=== PATIENT | male | born 1980 | race African-American/Black ===

== ENCOUNTER 2020-10-09 11:38 | Emergency (ER) | payer OTHER ==
[~2020-10-09] VITALS: Ht 160 cm; Wt 52.3 kg
[2020-10-09] MEDS ORDERED: METF-838 PO (11:55)
[2020-10-09] MEDS ORDERED: AMLO1TAB25 PO (11:56)
[2020-10-09] MEDS ORDERED: ACETAMINOPHEN 500 MG TAB PO ONE (14:20)
[2020-10-09] MEDS ORDERED: LIDOCAINE 5% (LIDODERM) PATCH TD ONE (14:20)
--- NOTE | 2020-10-09 15:02 | REP ---
INDICATION: fall. COMPARISON: None. TECHNIQUE: 4.5 mm contiguous transaxial sections were obtained from the skull base to the cerebral convexities with thin cuts through the posterior fossa without the administration of intravenous contrast. FINDINGS: The ventricles and sulci are consistent with the patient's age. There are no extra-axial fluid collections. There is no mass effect. The deep cerebral white matter is consistent with the patient's age. The orbital and petrous structures, cerebellopontine angles, and posterior fossa are unremarkable. The sella turcica, cavernous, and paracavernous structures are essentially unremarkable. The visualized portions of the paranasal sinuses and mastoid air cells are clear. Images of the skull base show no gross abnormality. IMPRESSION: Essentially unremarkable CT examination of the brain. <Electronically signed by Eugene Santillan > 10/09/20 [id number]
--- NOTE | 2020-10-09 15:04 | REP ---
INDICATION: fall. COMPARISON: None TECHNIQUE: Standard helical technique using 2 mm increments and reconstructed in both sagittal and coronal planes FINDINGS: Vertebral body height and alignment is within normal limits. The disc spaces are symmetric and well maintained throughout. The facet joints are well aligned bilaterally. There is no acute fracture subluxation. There is no abnormal paraspinal soft tissue swelling. IMPRESSION: No acute abnormality. <Electronically signed by Eugene Santillan > 10/09/20 1500
--- NOTE | 2020-10-09 15:06 | REP ---
INDICATION: fall. COMPARISON: None TECHNIQUE: Standard helical technique using 4 mm increments and reconstructed in both sagittal coronal planes FINDINGS: CT cannot rule out an acute disc extrusion. Vertebral body height and alignment is within normal limits. The disc spaces are symmetric and well maintained throughout. There is no acute fracture or abnormal subluxation. The facet joints are within normal limits bilaterally. There is no evidence of abnormal paraspinal soft tissue density. IMPRESSION: CT findings are within normal limits. <Electronically signed by Eugene Santillan > 10/09/20 [id number]
[2020-10-09 15:42] VITALS: BP 134/79
[2020-10-09] MEDS ORDERED: **NOTE PATIENT COMMENT** MISC XX SCH (21:00)
== END 2020-10-09 15:51 | disposition home or self-care (01) ==
LOC: M ED 11:38
DX: S00.93XA Contusion of unspecified part of head, initial encounter (principal); S30.0XXA Contusion of lower back and pelvis, initial encounter; X50.9XXA Other and unspecified overexertion or strenuous movements or postures, initial encounter; Y92.89 Other specified places as the place of occurrence of the external cause; Y93.66 Activity, soccer; Y99.8 Other external cause status; E11.9 Type 2 diabetes mellitus without complications; I10 Essential (primary) hypertension; M54.9 Dorsalgia, unspecified; G89.29 Other chronic pain; Z79.84 Long term (current) use of oral hypoglycemic drugs; Z79.899 Other long term (current) drug therapy

== ENCOUNTER 2021-10-23 10:35 | Inpatient (IN) | payer OTHER ==
[~2021-10-23] VITALS: Ht 160 cm; Wt 68.2 kg
[~2021-10-23 10:35] MED LIST: AMLO1TAB25 PO; METF-838 PO
[2021-10-23 11:18] LABS: HEMOGLOBIN 15.1 g/dl (13.5-17.5); MEAN CORPUSCULAR HEMOGLOBIN 27.1 pg (27.0-33.0); MEAN CORPUSCULAR HGB CONC 32.1 g/dl (32.0-36.5); MEAN CORPUSCULAR VOLUME 84.4 fl (80.0-96.0); PLATELET COUNT, AUTOMATED 290 10^3/uL (150-450); RED BLOOD COUNT 5.57 10^6/uL (4.30-6.10); WHITE BLOOD COUNT 6.4 10^3/uL (4.0-10.0)
[2021-10-23 12:03] LABS: ALBUMIN 4.4 GM/DL (3.2-5.2); ALT/SGPT 66 U/L (12-78); BILIRUBIN,DIRECT 0.1 MG/DL (0.0-0.2); BILIRUBIN,TOTAL 0.9 MG/DL (0.2-1.0); BLOOD UREA NITROGEN 15 MG/DL (7-18); CALCIUM LEVEL 10.3 MG/DL (8.5-10.1); CARBON DIOXIDE LEVEL 29 MEQ/L (21-32); CHLORIDE LEVEL 106 MEQ/L (98-107); CREATININE FOR GFR 1.06 MG/DL (0.70-1.30); ETHYL ALCOHOL (ETHANOL) < 0.003 % (0.000-0.010); GLOMERULAR FILTRATION RATE > 60.0 (>60); GLUCOSE, FASTING 155 MG/DL (70-100); SODIUM LEVEL 140 MEQ/L (136-145); TOTAL PROTEIN 8.7 GM/DL (6.4-8.2)
[2021-10-23 12:04] LABS: ACETAMINOPHEN LEVEL < 2.0 UG/ML (10.0-30.0); SALICYLATE LEVEL < 1.7 MG/DL (5.0-30.0)
[2021-10-23 13:24] LABS: AMPHETAMINES LEVEL URINE NEGATIVE (NEGATIVE); BARBITURATES URINE NEGATIVE (NEGATIVE); BENZODIAZEPINES URINE NEGATIVE (NEGATIVE); CANNABINOIDS URINE NEGATIVE (NEGATIVE); COCAINE METABOLITE URINE NEGATIVE (NEGATIVE); METHADONE URINE NEGATIVE (NEGATIVE); OPIATES URINE NEGATIVE (NEGATIVE); PHENCYCLIDINE URINE NEGATIVE (NEGATIVE)
[2021-10-23 13:27] LABS: RSV AMPLIFICATION NEGATIVE (NEGATIVE)
[2021-10-23] MEDS ORDERED: SITA50TAB PO (13:55)
[2021-10-23] MEDS ORDERED: [UNRECOGNIZED DRUG - OTHER] (13:55)
[2021-10-23] MEDS ORDERED: MAGN400T2 PO (21:34)
[2021-10-23] MEDS ORDERED: MELA3TAB29 PO (21:34)
[2021-10-23] MEDS ORDERED: ROSU40TA4 PO (21:34)
[2021-10-23] MEDS ORDERED: ALBU8.5H INH (21:34)
[2021-10-23] MEDS ORDERED: BENZ200C70 PO (21:34)
[2021-10-23] MEDS ORDERED: NOVOINJ SC (21:34)
[2021-10-23] MEDS ORDERED: FLUO20CA22 PO (21:34)
[2021-10-23] MEDS ORDERED: METF-838 PO (21:34)
[2021-10-23] MEDS ORDERED: RIZA5TAB2 PO (21:34)
[2021-10-23] MEDS ORDERED: AMLO1TAB25 PO (21:34)
[2021-10-24] MEDS ORDERED: RIZATRIPTAN BENZOATE 10 MG TAB PO PRN ×2 (02:00→19:10)
[2021-10-24] MEDS ORDERED: FLUoxetine 20MG CAP PO ONE (02:00)
[2021-10-24] MEDS ORDERED: MAGNESIUM OXIDE 400MG TAB (MAG-OX) PO ONE (02:00)
[2021-10-24] MEDS ORDERED: PILL CUTTER 1 EACH XX PRN (02:25)
[2021-10-24] MEDS ORDERED: PATIENT COMMENT (07:56)
[2021-10-24] MEDS ORDERED: JANU50TA22 PO (07:56)
[2021-10-24] MEDS ORDERED: VALS1TAB66 PO (07:56)
[2021-10-24] MEDS ORDERED: HOME MED LIST COMPLETE! XX SCH (08:00)
[2021-10-24] MEDS ORDERED: GLUCOSE 4GM CHEW TABLET PO PRN ×2 (09:10→19:10)
[2021-10-24] MEDS ORDERED: GLUCAGON INJ 1MG VIAL SC PRN ×2 (09:10→19:10)
[2021-10-24] MEDS ORDERED: DEXTROSE 50% 50 ML SYRINGE IV PRN ×2 (09:10→19:10)
[2021-10-24] MEDS: INSULIN LISPRO (NovoLOG) PER UNIT SC SCH ×2 (09:20→13:09)
[2021-10-24] MEDS ORDERED: metFORMIN (GLUCOPHAGE) 500MG TAB PO ONE (19:10)
[2021-10-24] MEDS ORDERED: MAALOX 30 ML SUSP *UDC PO PRN (19:10)
[2021-10-24] MEDS ORDERED: MOM 30ML SUSPENSION UDC PO PRN (19:10)
[2021-10-24] MEDS ORDERED: ACETAMINOPHEN TAB 650MG DOSE (2X325MG) PO PRN (19:10)
[2021-10-24 20:52] VITALS: BP 145/92
[2021-10-24] MEDS ORDERED: INSULIN LISPRO (NovoLOG) PER UNIT SC SCH (21:00)
[2021-10-24] MEDS ORDERED: ALBUTEROL 90 MCG/ACT 8GM HFA INHALER INH PRN (22:35)
[2021-10-24] MEDS: ROSUVASTATIN 10 MG TAB (CRESTOR) PO SCH (22:41)
[2021-10-24] MEDS: SITagliptin 50 MG TAB (JANUVIA) PO SCH (22:42)
[2021-10-24] MEDS: MAGNESIUM OXIDE 400MG TAB (MAG-OX) PO SCH (22:42)
[2021-10-25] MEDS ORDERED: ALBUTEROL 90 MCG/ACT 8GM HFA INHALER INH PRN (00:35)
[2021-10-25 06:39] VITALS: BP 144/82
[2021-10-25] MEDS: INSULIN LISPRO (NovoLOG) PER UNIT SC SCH ×3 (07:05→17:24)
[2021-10-25] MEDS: SITagliptin 50 MG TAB (JANUVIA) PO SCH ×2 (10:31→21:42)
[2021-10-25] MEDS: metFORMIN XR 500MG TAB *GLUCOPHAGE XR PO SCH ×2 (10:31→17:23)
[2021-10-25] MEDS: VALSARTAN 80 MG TAB (DIOVAN) PO SCH (10:32)
[2021-10-25] MEDS: MAGNESIUM OXIDE 400MG TAB (MAG-OX) PO SCH ×2 (10:32→21:43)
[2021-10-25] MEDS: FLUoxetine 20MG CAP PO SCH (10:32)
[2021-10-25 18:00] VITALS: BP 148/92
[2021-10-25] MEDS: traZODone 50 MG TAB PO PRN (21:42)
[2021-10-25] MEDS: ROSUVASTATIN 10 MG TAB (CRESTOR) PO SCH (21:42)
[2021-10-26 06:40] VITALS: BP 128/83
[2021-10-26] MEDS: INSULIN LISPRO (NovoLOG) PER UNIT SC SCH ×3 (06:51→17:30)
[2021-10-26] MEDS: SITagliptin 50 MG TAB (JANUVIA) PO SCH ×2 (08:26→21:53)
[2021-10-26] MEDS: MAGNESIUM OXIDE 400MG TAB (MAG-OX) PO SCH ×2 (08:27→21:53)
[2021-10-26] MEDS: VALSARTAN 80 MG TAB (DIOVAN) PO SCH (08:27)
[2021-10-26] MEDS: FLUoxetine 20MG CAP PO SCH (08:27)
[2021-10-26] MEDS: metFORMIN XR 500MG TAB *GLUCOPHAGE XR PO SCH ×2 (08:27→17:52)
[2021-10-26] MEDS: traZODone 50 MG TAB PO PRN (21:52)
[2021-10-26] MEDS: ROSUVASTATIN 10 MG TAB (CRESTOR) PO SCH (21:52)
[2021-10-27 07:02] VITALS: BP 145/95
[2021-10-27] MEDS: INSULIN LISPRO (NovoLOG) PER UNIT SC SCH ×3 (07:03→17:20)
[2021-10-27] MEDS: FLUoxetine 20MG CAP PO SCH (07:40)
[2021-10-27] MEDS: MAGNESIUM OXIDE 400MG TAB (MAG-OX) PO SCH ×2 (07:40→20:25)
[2021-10-27] MEDS: metFORMIN XR 500MG TAB *GLUCOPHAGE XR PO SCH ×2 (07:40→17:20)
[2021-10-27] MEDS: SITagliptin 50 MG TAB (JANUVIA) PO SCH ×2 (07:41→20:25)
[2021-10-27] MEDS: VALSARTAN 80 MG TAB (DIOVAN) PO SCH (07:41)
[2021-10-27 15:36] LABS: HEMOGLOBIN A1c 6.8 %
[2021-10-27 16:24] VITALS: BP 152/84
[2021-10-27] MEDS: ROSUVASTATIN 10 MG TAB (CRESTOR) PO SCH (20:24)
[2021-10-27] MEDS ORDERED: PRAZOSIN 1 MG CAP PO SCH (21:00)
[2021-10-28 06:21] VITALS: BP 152/88
[2021-10-28] MEDS: INSULIN LISPRO (NovoLOG) PER UNIT SC SCH ×2 (06:36→12:00)
[2021-10-28 07:56] VITALS: BP 152/88
[2021-10-28] MEDS: SITagliptin 50 MG TAB (JANUVIA) PO SCH (07:56)
[2021-10-28] MEDS: FLUoxetine 20MG CAP PO SCH (07:56)
[2021-10-28] MEDS: MAGNESIUM OXIDE 400MG TAB (MAG-OX) PO SCH (07:56)
[2021-10-28] MEDS: VALSARTAN 80 MG TAB (DIOVAN) PO SCH (07:56)
[2021-10-28] MEDS: metFORMIN XR 500MG TAB *GLUCOPHAGE XR PO SCH (07:56)
[2021-10-28] MEDS ORDERED: PROZ40CA PO (09:13)
[2021-10-28] MEDS ORDERED: MINI1CAP PO (09:13)
[2021-10-28] MEDS ORDERED: TRAZ-252 PO (09:13)
== END 2021-10-28 12:45 | disposition home or self-care (01) | DRG 885 ==
LOC: M ED 10:35 → M ED INP 10-24 19:09 → M PSY 10-24 20:52
PROVIDERS: ADMIT Student in an Organized Health Care Education/Training Program; ATTEND Student in an Organized Health Care Education/Training Program
DX: F33.2 Major depressive disorder, recurrent severe without psychotic features (principal); F43.10 Post-traumatic stress disorder, unspecified; F10.10 Alcohol abuse, uncomplicated; I10 Essential (primary) hypertension; E11.9 Type 2 diabetes mellitus without complications; E78.5 Hyperlipidemia, unspecified; G43.909 Migraine, unspecified, not intractable, without status migrainosus; Z87.820 Personal history of traumatic brain injury; Z79.84 Long term (current) use of oral hypoglycemic drugs; Z79.899 Other long term (current) drug therapy

== ENCOUNTER → 2022-02-12 | Outpatient (CLI) | payer OTHER ==
[~2022-02-12] MED LIST changes: +ALBU8.5H INH; +BENZ200C70 PO; +FLUO20CA22 PO; +JANU50TA22 PO; +MAGN400T2 PO; +MELA3TAB29 PO; +METHACHOLINE KIT (J7674) INH ONE; +MINI1CAP PO; +NOVOINJ SC; +PATIENT COMMENT; +PROZ40CA PO; +RIZA5TAB2 PO; +ROSU40TA4 PO; +SITA50TAB PO; +TRAZ-252 PO; +VALS1TAB66 PO; +[UNRECOGNIZED DRUG - OTHER]
== END ==
LOC: M RAD 07:32
PROVIDERS: ATTEND Nurse Practitioner Family
DX: R06.02 Shortness of breath (principal)

== ENCOUNTER → 2022-03-05 | Outpatient (CLI) | payer OTHER ==
[~2022-03-05] MED LIST changes: -METHACHOLINE KIT (J7674) INH ONE
== END ==
LOC: M SOG 14:23
PROVIDERS: ATTEND Orthopaedic Surgery Hand Surgery
DX: M79.644 Pain in right finger(s) (principal)

== ENCOUNTER → 2022-03-10 | Outpatient (CLI) | payer OTHER ==
[~2022-03-10] MED LIST changes: +METHACHOLINE KIT (J7674) INH ONE
== END ==
LOC: M CARPUL 13:35
PROVIDERS: ATTEND Nurse Practitioner Family
DX: R06.02 Shortness of breath (principal)

== ENCOUNTER → 2022-03-19 | Outpatient (CLI) | payer OTHER ==
[~2022-03-19] MED LIST changes: -METHACHOLINE KIT (J7674) INH ONE
== END ==
LOC: M PLAIMG 07:21
PROVIDERS: ATTEND Orthopaedic Surgery Hand Surgery
DX: M79.644 Pain in right finger(s) (principal)